=== PATIENT | female | born 2000 | race Hispanic/Latino ===

== ENCOUNTER 2023-09-23 19:51 | Inpatient (IN) | payer OTHER ==
[2023-09-23] MEDS ORDERED: Promethazine HCl 25 MG/ML VIAL IM PRN (20:09)
[2023-09-23] MEDS ORDERED: Acetaminophen 500 MG TAB PO PRN (20:09)
[2023-09-23] MEDS ORDERED: HYDROcodone/Acetaminophen 5/325 mg Tablet PO PRN (20:09)
[2023-09-23] MEDS ORDERED: Tranexamic Acid 1,000 MG/10 ML VIAL IVP PRN (20:09)
[2023-09-23] MEDS ORDERED: Carboprost 250 MCG/ML AMP IM PRN (20:09)
[2023-09-23] MEDS ORDERED: Ibuprofen 800 MG TAB PO PRN (20:09)
[2023-09-23] MEDS ORDERED: Methylergonovine 0.2 MG/ML VIAL IM PRN (20:09)
[2023-09-23] MEDS ORDERED: Lidocaine 1% (PF) 30 ML VIAL SC PRN (20:09)
[2023-09-23] MEDS ORDERED: Diphenoxylate HCl/Atropine Tablet PO PRN (20:09)
[2023-09-23] MEDS ORDERED: Ondansetron PF 4 MG/2 ML Vial IVP PRN (20:09)
[2023-09-23] MEDS ORDERED: hydrALAZINE 20 MG/ML VIAL SLOW IVP PRN (20:09)
[2023-09-23] MEDS ORDERED: Misoprostol 200 MCG TAB PR PRN (20:09)
[2023-09-23] MEDS ORDERED: Oxytocin 30 units/NS 500 ML 500 ML IV SCH (20:15)
[2023-09-23 20:21] VITALS: BMI 32.1
[2023-09-23 21:08] LABS: Hematocrit 32.3 % (34.9-44.5); Hemoglobin 10.6 g/dL (12.0-15.5); Mean Corpuscular HGB CONC 32.8 g/dL (32.0-36.0); Mean Corpuscular Hemoglobin 27.2 pg (27.0-33.0); Mean Platelet Volume 12.1 fl (7.4-10.4); Platelet Count 197 10x3/uL (150-450); RBC Distribution Width 14.5 % (11.5-14.5); Red Blood Cell (RBC) Count 3.89 10x6/uL (3.90-5.03); White Blood Cell (WBC) Count 6.5 10x3/uL (3.5-10.5)
[2023-09-23] MEDS: Misoprostol 100 MCG TAB PO SCH (21:50)
[2023-09-23 23:00] LABS: HBsAg Index 0.21 S/CO (0-0.99); Hep B Surf Ag - L&D Non-Reactive S/CO (NonReactive)
[2023-09-23 23:02] LABS: Syphilis Antibody Nonreactive (Nonreactive); Syphilis Antibody Index 0.09 S/CO (<1.00 Non-Reactive)
[2023-09-24] MEDS: Lactated Ringer's 1,000 ML IV SCH (04:21)
[2023-09-24] MEDS: Oxytocin 30 units/NS 500 ML 500 ML IV SCH ×2 (04:22→05:03)
[2023-09-24] MEDS: fentaNYL 50 mcg/mL 1 mL Vial SLOW IVP PRN (10:12)
[2023-09-24] MEDS: fentaNYL/Ropivacaine Epidural 100 ML ONE (11:20)
[2023-09-24] MEDS ORDERED: Lanolin Ointment 7 GM TUBE TOP PRN (21:39)
[2023-09-24] MEDS ORDERED: hydrALAZINE 20 MG/ML VIAL SLOW IVP PRN (21:39)
[2023-09-24] MEDS ORDERED: diphenhydrAMINE 25 MG CAP PO PRN (21:39)
[2023-09-24] MEDS ORDERED: Bisacodyl 10 MG SUPP PR PRN (21:39)
[2023-09-24] MEDS ORDERED: Promethazine HCl 25 MG/ML VIAL IM PRN (21:39)
[2023-09-24] MEDS ORDERED: Benzocaine-Menthol 82.5 ML CAN TOP PRN (21:39)
[2023-09-24] MEDS ORDERED: Ondansetron PF 4 MG/2 ML Vial IVP PRN (21:39)
[2023-09-24] MEDS ORDERED: Milk Of Magnesia 30 ML UDCUP PO PRN (21:39)
[2023-09-24] MEDS: Docusate 100 MG CAP PO SCH (22:28)
[2023-09-24] MEDS: Ibuprofen 800 MG TAB PO SCH (22:29)
[2023-09-25] MEDS: Boostrix 0.5 ML (Tdap) VIAL (>/=7 yrs of age) IM ONE (07:20)
[2023-09-25] MEDS: Ferrous Sulfate 325 MG TAB PO SCH (07:20)
[2023-09-25] MEDS: Docusate 100 MG CAP PO SCH (07:41)
[2023-09-25] MEDS: Prenatal Vitamin 1 TAB PO SCH (07:42)
[2023-09-25] MEDS: HYDROcodone/Acetaminophen 5/325 mg Tablet PO PRN (20:40)
[2023-09-26 08:19] VITALS: BP 119/73; TEMP 97.7
[2023-09-26] MEDS ORDERED: Bupivacaine 0.25% HCL 30 ML VIAL ONE (09:00)
== END 2023-09-26 12:50 | disposition home or self-care (01) | DRG 806 ==
LOC: CSHLD 19:51 → CSHPP 09-24 21:28
PROVIDERS: ADMIT Family Medicine; ATTEND Family Medicine
PROC: 10E0XZZ Delivery of Products of Conception, External Approach (ICD-10-PCS; principal; 2023-09-23)
PROC: 10907ZC Drainage of Amniotic Fluid, Therapeutic from Products of Conception, Via Natural or Artificial Opening (ICD-10-PCS; 2023-09-23)
PROC: 3E0P7VZ Introduction of Hormone into Female Reproductive, Via Natural or Artificial Opening (ICD-10-PCS; 2023-09-23)
PROC: 0UQMXZZ Repair Vulva, External Approach (ICD-10-PCS; 2023-09-23)
PROC: 0UQGXZZ Repair Vagina, External Approach (ICD-10-PCS; 2023-09-23)
DX: O71.82 Other specified trauma to perineum and vulva (principal); O71.4 Obstetric high vaginal laceration alone; Z37.0 Single live birth; Z3A.40 40 weeks gestation of pregnancy
CPT/HCPCS: 36415; 51702; 85027; 86780; 86850; 86900; 86901; 87340; J0665; J2590; J3010; J7120

== ENCOUNTER 2025-03-16 05:58 | Inpatient (IN) | payer OTHER ==
[2025-03-16] MEDS ORDERED: Tranexamic Acid 1,000 MG/10 ML VIAL IVP PRN (06:39)
[2025-03-16] MEDS ORDERED: Acetaminophen 500 MG TAB PO PRN (06:39)
[2025-03-16] MEDS ORDERED: hydrALAZINE 20 MG/ML VIAL SLOW IVP PRN ×2 (06:39→14:56)
[2025-03-16] MEDS ORDERED: Ibuprofen 800 MG TAB PO PRN (06:39)
[2025-03-16] MEDS ORDERED: Diphenoxylate HCl/Atropine Tablet PO PRN (06:39)
[2025-03-16] MEDS ORDERED: Oxytocin 30 units/NS 500 ML 500 ML IV SCH (06:39)
[2025-03-16] MEDS ORDERED: Ondansetron PF 4 MG/2 ML Vial IVP PRN ×2 (06:39→14:56)
[2025-03-16] MEDS ORDERED: Lidocaine 1% (PF) 30 ML VIAL SC PRN (06:39)
[2025-03-16] MEDS ORDERED: Methylergonovine 0.2 MG/ML VIAL IM PRN (06:39)
[2025-03-16] MEDS ORDERED: HYDROcodone/Acetaminophen 5/325 mg Tablet PO PRN (06:39)
[2025-03-16] MEDS ORDERED: Carboprost 250 MCG/ML AMP IM PRN (06:39)
[2025-03-16 06:40] VITALS: BMI 32.8
[2025-03-16] MEDS: Oxytocin 30 units/NS 500 ML 500 ML IV SCH (07:13)
[2025-03-16 07:28] LABS: Hematocrit 29.1 % (34.9-44.5); Hemoglobin 8.8 g/dL (12.0-15.5); Mean Corpuscular Hemoglobin 22.9 pg (27.0-33.0); Mean Corpuscular Volume 75.8 fL (81.6-98.3); Platelet Count 174 10x3/uL (150-450); Red Blood Cell (RBC) Count 3.84 10x6/uL (3.90-5.03); White Blood Cell (WBC) Count 6.64 10x3/uL (3.5-10.5)
[2025-03-16 07:59] LABS: Hep B Surf Ag - L&D Non-Reactive S/CO (NonReactive)
[2025-03-16 08:00] LABS: Syphilis Antibody Index 0.05 S/CO (<1.00 Non-Reactive)
[2025-03-16] MEDS: fentaNYL/Ropivacaine Epidural 100 ML ONE (09:08)
[2025-03-16] MEDS ORDERED: Lanolin Ointment 7 GM TUBE TOP PRN (14:56)
[2025-03-16] MEDS ORDERED: Milk Of Magnesia 30 ML UDCUP PO PRN (14:56)
[2025-03-16] MEDS ORDERED: Bisacodyl 10 MG SUPP PR PRN (14:56)
[2025-03-16] MEDS ORDERED: diphenhydrAMINE 25 MG CAP PO PRN (14:56)
[2025-03-16] MEDS ORDERED: Benzocaine-Menthol 82.5 ML CAN TOP PRN (14:56)
[2025-03-16] MEDS: HYDROcodone/Acetaminophen 5/325 mg Tablet PO PRN (16:49)
[2025-03-16] MEDS: Ferrous Sulfate 325 MG TAB PO SCH (17:10)
[2025-03-16] MEDS: Ibuprofen 800 MG TAB PO SCH ×2 (17:15→21:25)
[2025-03-16] MEDS ORDERED: Bupivacaine 0.25% HCL 30 ML VIAL ONE (18:27)
[2025-03-18 09:41] VITALS: BP 120/59; TEMP 98.4
== END 2025-03-18 09:25 | disposition home or self-care (01) | DRG 807 ==
LOC: CSHLD 05:58 → CSHPP 14:50
PROVIDERS: ADMIT Family Medicine; ATTEND Family Medicine
PROC: 10E0XZZ Delivery of Products of Conception, External Approach (ICD-10-PCS; principal; 2025-03-16)
PROC: 10907ZC Drainage of Amniotic Fluid, Therapeutic from Products of Conception, Via Natural or Artificial Opening (ICD-10-PCS; 2025-03-16)
PROC: 3E033VJ Introduction of Other Hormone into Peripheral Vein, Percutaneous Approach (ICD-10-PCS; 2025-03-16)
PROC: 0HQ9XZZ Repair Perineum Skin, External Approach (ICD-10-PCS; 2025-03-16)
PROC: 3E033XZ Introduction of Vasopressor into Peripheral Vein, Percutaneous Approach (ICD-10-PCS; 2025-03-16)
DX: O70.0 First degree perineal laceration during delivery (principal); Z37.0 Single live birth; Z3A.39 39 weeks gestation of pregnancy
CPT/HCPCS: 51702; 85027; 86780; 86850; 86900; 86901; 87340; J0665; J2590; J7120